=== PATIENT | female | born 1965 | race Caucasian/White ===

== ENCOUNTER → 2019-02-03 10:42 | Outpatient (CLI) | payer SELFPAY ==
[2019-02-04 15:39] LABS: HPV Reflexed? NOT INDICATED
== END ==
PROVIDERS: Family Provider Family Medicine; PCP Family Medicine; Referring Provider Obstetrics & Gynecology; Visit Provider Obstetrics & Gynecology
DX: Z12.4 Encounter for screening for malignant neoplasm of cervix (principal)
CPT/HCPCS: 87624; 88175; G0145